=== PATIENT | female | born 1975 | race Two or more races ===

== ENCOUNTER 2021-05-06 11:29 | Day surgery (SDC) | payer OTHER ==
[2021-05-06] MEDS ORDERED: FERRIC CARBOXYMALTOSE 750 MG in SODIUM CHLORIDE 250 ML IVPB ONE (12:00)
[2021-05-06 14:24] VITALS: BP 154/86; PULSE 88; TEMP 98.6
== END 2021-05-06 13:00 | disposition home or self-care (01) ==
LOC: FINFUSION 11:29 → FM/S 11:29 → FINFUSION 13:00
PROVIDERS: ATTEND Family Medicine
PROC: 3E033GC Introduction of Other Therapeutic Substance into Peripheral Vein, Percutaneous Approach (ICD-10-PCS; principal; 2021-05-06)
DX: D50.9 Iron deficiency anemia, unspecified (principal)
CPT/HCPCS: 96365; J1439

== ENCOUNTER 2021-05-20 11:01 | Day surgery (SDC) | payer OTHER ==
[2021-05-20] MEDS ORDERED: FERRIC CARBOXYMALTOSE 750 MG in SODIUM CHLORIDE 250 ML IVPB ONE (11:45)
[2021-05-20 11:46] VITALS: TEMP 98.1
[2021-05-20 12:44] VITALS: BP 143/98; PULSE 89
== END 2021-05-20 12:58 | disposition home or self-care (01) ==
LOC: FINFUSION 11:01 → FM/S 11:05 → FINFUSION 12:58
PROVIDERS: ATTEND Family Medicine
PROC: 3E033GC Introduction of Other Therapeutic Substance into Peripheral Vein, Percutaneous Approach (ICD-10-PCS; principal; 2021-05-20)
DX: D50.9 Iron deficiency anemia, unspecified (principal)
CPT/HCPCS: 96365; J1439

== ENCOUNTER 2023-01-27 14:36 | Day surgery (SDC) | payer OTHER ==
[2023-01-27] MEDS ORDERED: FERRIC CARBOXYMALTOSE 750 MG in SODIUM CHLORIDE 250 ML IVPB ONE (16:00)
[2023-01-27 16:11] VITALS: BP 144/80; PULSE 100; RESP 18; TEMP 98.5
== END 2023-01-27 16:45 | disposition home or self-care (01) ==
LOC: FINFUSION 14:36 → FM/S 14:37 → FINFUSION 16:45
PROVIDERS: ATTEND Family Medicine
PROC: 3E033GC Introduction of Other Therapeutic Substance into Peripheral Vein, Percutaneous Approach (ICD-10-PCS; principal; 2023-01-27)
DX: D50.9 Iron deficiency anemia, unspecified (principal)
CPT/HCPCS: 81025; 96365; J1439

== ENCOUNTER 2023-02-03 14:36 | Day surgery (SDC) | payer OTHER ==
[2023-02-03] MEDS ORDERED: FERRIC CARBOXYMALTOSE 750 MG in SODIUM CHLORIDE 250 ML IVPB ONE (16:00)
[2023-02-03 16:15] VITALS: BP 130/78; PULSE 86; RESP 18; TEMP 98.4
== END 2023-02-03 16:15 | disposition home or self-care (01) ==
LOC: FINFUSION 14:36 → FM/S 14:37 → FINFUSION 16:15
PROVIDERS: ATTEND Family Medicine
PROC: 3E033GC Introduction of Other Therapeutic Substance into Peripheral Vein, Percutaneous Approach (ICD-10-PCS; principal; 2023-02-03)
DX: D50.9 Iron deficiency anemia, unspecified (principal)
CPT/HCPCS: 81025; 96365; J1439